=== PATIENT | male | born 1970 | race African-American/Black ===

== ENCOUNTER 2019-05-18 16:53 | Emergency (ER) | payer MEDICAID ==
[~2019-05-18] VITALS: Ht 162.6 cm; Wt 66.4 kg
[2019-05-18] MEDS ORDERED: IBUPROFEN 600 MG TABLET PO ONE (17:45)
[2019-05-18 18:22] VITALS: BP 159/105
== END 2019-05-18 18:56 | disposition home or self-care (01) ==
LOC: EMS 16:54
DX: S00.83XA Contusion of other part of head, initial encounter (principal); I10 Essential (primary) hypertension; F17.210 Nicotine dependence, cigarettes, uncomplicated; Z98.890 Other specified postprocedural states; W22.8XXA Striking against or struck by other objects, initial encounter; Y93.89 Activity, other specified; Y92.89 Other specified places as the place of occurrence of the external cause; Y99.8 Other external cause status
CPT/HCPCS: 70450; 99406